=== PATIENT | male | born 1985 | race Caucasian/White ===

== ENCOUNTER 2017-11-12 15:39 | Emergency (ER) | payer SELFPAY ==
[~2017-11-12] VITALS: Ht 170.2 cm; Wt 86.4 kg
[2017-11-12 15:58] VITALS: BP 132/84; TEMP 98.5
[2017-11-12] MEDS ORDERED: DOXYCYCLINE 10100 MG PO (16:23)
[2017-11-12 16:39] VITALS: PULSE 79
== END 2017-11-12 16:39 | disposition home or self-care (01) ==
LOC: COL.ER 15:39
DX: S50.862A Insect bite (nonvenomous) of left forearm, initial encounter (principal); L08.9 Local infection of the skin and subcutaneous tissue, unspecified; F17.210 Nicotine dependence, cigarettes, uncomplicated; W57.XXXA Bitten or stung by nonvenomous insect and other nonvenomous arthropods, initial encounter; Y99.0 Civilian activity done for income or pay
CPT/HCPCS: J1100

== ENCOUNTER 2018-05-26 10:10 | Emergency (ER) | payer SELFPAY ==
[~2018-05-26] VITALS: Ht 170.2 cm; Wt 86.4 kg
[~2018-05-26 10:10] MED LIST: DOXYCYCLINE 10100 MG PO
[2018-05-26 10:15] VITALS: BP 167/102; TEMP 97
[2018-05-26] MEDS ORDERED: DOXYCYCLINE 10100 MG PO (11:04)
[2018-05-26 11:15] VITALS: PULSE 94
== END 2018-05-26 11:27 | disposition home or self-care (01) ==
LOC: COL.ER 10:10
DX: L02.811 Cutaneous abscess of head [any part, except face] (principal); H02.844 Edema of left upper eyelid; F17.210 Nicotine dependence, cigarettes, uncomplicated

== ENCOUNTER 2019-08-18 13:24 | Emergency (ER) | payer OTHER ==
[~2019-08-18] VITALS: Ht 170.2 cm; Wt 86.4 kg
[2019-08-18 13:47] VITALS: TEMP 98.2
[2019-08-18 14:31] VITALS: BP 132/87; PULSE 91
== END 2019-08-18 14:31 | disposition home or self-care (01) ==
LOC: COL.ER 13:24
DX: S90.455A Superficial foreign body, left lesser toe(s), initial encounter (principal); F17.210 Nicotine dependence, cigarettes, uncomplicated; X58.XXXA Exposure to other specified factors, initial encounter

== ENCOUNTER 2021-07-08 12:47 | Emergency (ER) | payer MEDICAID ==
[~2021-07-08] VITALS: Ht 170.2 cm; Wt 90.9 kg
[2021-07-08 12:58] VITALS: TEMP 98.3
[2021-07-08] MEDS ORDERED: FLONASE NASAL S16 GM NS (13:14)
[2021-07-08] MEDS ORDERED: AMOXICILLIN 8751 TAB PO (13:14)
[2021-07-08 13:30] VITALS: BP 133/76; PULSE 87
== END 2021-07-08 13:30 | disposition home or self-care (01) ==
LOC: COL.ER 12:47
DX: J01.00 Acute maxillary sinusitis, unspecified (principal); Z28.310 Unvaccinated for COVID-19

== ENCOUNTER 2022-06-17 12:06 | Emergency (ER) | payer MEDICAID ==
[~2022-06-17] VITALS: Ht 167.6 cm; Wt 100.0 kg
[~2022-06-17 12:06] MED LIST changes: +AMOXICILLIN 8751 TAB PO; +FLONASE NASAL S16 GM NS
[2022-06-17 12:09] VITALS: TEMP 98.2
[2022-06-17 13:47] LABS: COLLECTION METHOD CLEAN CATCH
[2022-06-17 14:07] LABS: MUCOUS Present (NOT PRESENT); SQUAMOUS EPITHELIAL None Seen /hpf (0-10); URINE BACTERIA None Seen /hpf (NONE SEEN); URINE RBC 0-2 /hpf (0-2)
[2022-06-17 14:10] LABS: URINE APPEARANCE Clear (CLEAR/HAZY); URINE BLOOD Negative (NEGATIVE); URINE COLOR Yellow (YELLOW); URINE GLUCOSE Negative (NEGATIVE); URINE KETONE Negative (NEGATIVE); URINE NITRATE Negative (NEGATIVE); URINE PROTEIN(semi-quant) Negative (NEGATIVE); URINE UROBILINOGEN 0.2 E.U/dL (0.2-1.0)
[2022-06-17] MEDS ORDERED: PREDNISONE20 MG PO (14:20)
[2022-06-17] MEDS ORDERED: FLEXERIL 1010 MG/TAB PO (14:20)
[2022-06-17] MEDS ORDERED: NORCO 325 MG-51 TAB PO (14:20)
[2022-06-17 14:28] VITALS: BP 141/96; PULSE 75
== END 2022-06-17 14:28 | disposition home or self-care (01) ==
LOC: COL.ER 12:06
PROVIDERS: Nurse Practitioner
DX: M54.50 Low back pain, unspecified (principal); Z87.891 Personal history of nicotine dependence; Z28.310 Unvaccinated for COVID-19
CPT/HCPCS: J1885; J2360